=== PATIENT | female | born 1985 | race Caucasian/White ===

== ENCOUNTER → 2020-05-11 | Outpatient (CLI) | payer MEDICARE, MEDICAID ==
[~2020-05-11] MED LIST: ALBU17AE23 IH; ALBU8.5H2; ARPZ10T; BSP10T PO; CITA-105; FLT11013; HYDR-3600 PO; LEVO500T69 PO; MELO-195; METH4TAB PO; MONT10TA24; MTF500T; OMEP20CA12; OXCA150T PO; OXCA300T; PRAZ2CAP PO; SUMA100T3; TOPI100T2; TOPI50TA2; TRZ100T
== END ==
LOC: RAD 13:10
PROVIDERS: ATTEND Nurse Practitioner Family
DX: Z53.9 Procedure and treatment not carried out, unspecified reason (principal); M54.5 Low back pain

== ENCOUNTER → 2023-01-01 | Outpatient (CLI) | payer MEDICARE, MEDICAID | LOC: CARD 11:32 | PROVIDERS: ATTEND Internal Medicine Cardiovascular Disease | DX: R55 Syncope and collapse (principal); R06.09 Other forms of dyspnea | CPT/HCPCS: 93225; 93226; 93306 ==

== ENCOUNTER → 2023-02-06 | Outpatient (CLI) | payer MEDICARE, MEDICAID ==
[~2023-02-06] MED LIST changes: +CATHETER FLUSH 10 ML SYR IVP PRN; +REGADENOSON 0.4 MG/5 ML SYR (LEXISCAN) IV ONE
[2023-02-06 13:13] VITALS: BP 139/104
--- NOTE | 2023-02-08 13:36 | STRESS TEST ---
DATE OF SERVICE: 02/06/2023 RESTING AND POST REGADENOSON TECHNETIUM-99M TETROFOSMIN SPECT CT IMAGING ORDERING PHYSICIAN: Dr. Gee. PRIMARY PHYSICIAN: [facility]. CLINICAL DIAGNOSIS: Chest discomfort. Baseline images were carried out after injection of 10.39 mCi of technetium-99m tetrofosmin. This was followed by 0.4 mg regadenoson and 30.6 mCi of technetium-99m tetrofosmin for stress imaging. The electrocardiogram showed sinus rhythm at baseline. It did not change significantly with regadenoson infusion. The patient noted some heaviness in the leg and mild shortness of breath following regadenoson infusion. These symptoms resolved in a few minutes. Review of images at rest and following stress does not indicate any significant perfusion defects consistent with myocardial ischemia or infarction. Gated images show normal global left ventricular systolic function with normal regional wall motion. Left ventricular ejection fraction is calculated to be 73%. CONCLUSION: 1. No evidence of any significant myocardial ischemia or infarction on this study. 2. Normal regional wall motion. 3. Normal global left ventricular systolic function with a calculated ejection fraction of 73%. Job ID: [id number] DocumentID: [id number] Dictated Date: 02/08/2023 13:15:52 Broiler Manager Date: 02/08/2023 13:34:00 Dictated By: LISSETTE GEE MD; MICA; FACP; FACC;
== END ==
LOC: CARD 11:52
PROVIDERS: ATTEND Internal Medicine Cardiovascular Disease
DX: R07.89 Other chest pain (principal)
CPT/HCPCS: 78452; 93017; A9502